=== PATIENT | male | born 1935 | race Hispanic/Latino ===

== ENCOUNTER 2018-11-26 11:21 | Emergency (ER) | payer MEDICARE ==
[2018-11-26] MEDS ORDERED: ACETAMINOPHEN EXTRA STRENGTH 500 MG TABLET ONE (11:45)
== END 2018-11-26 12:30 | disposition home or self-care (01) ==
LOC: EDH 11:21
DX: S46.912A Strain of unspecified muscle, fascia and tendon at shoulder and upper arm level, left arm, initial encounter (principal); N18.6 End stage renal disease; Z87.891 Personal history of nicotine dependence; Z99.2 Dependence on renal dialysis; W18.39XA Other fall on same level, initial encounter; Y93.01 Activity, walking, marching and hiking; Y92.89 Other specified places as the place of occurrence of the external cause; Y99.8 Other external cause status
CPT/HCPCS: 73030

== ENCOUNTER 2018-12-03 13:21 | Emergency (ER) | payer MEDICARE ==
[2018-12-03] MEDS ORDERED: IBUPROFEN 400 MG TABLET ONE (14:21)
== END 2018-12-03 14:51 | disposition home or self-care (01) ==
LOC: EDH 13:21
DX: S93.401A Sprain of unspecified ligament of right ankle, initial encounter (principal); S93.601A Unspecified sprain of right foot, initial encounter; N18.6 End stage renal disease; Z99.2 Dependence on renal dialysis; X58.XXXA Exposure to other specified factors, initial encounter; Y93.89 Activity, other specified; Y92.89 Other specified places as the place of occurrence of the external cause; Y99.8 Other external cause status
CPT/HCPCS: 73610; 73620

== ENCOUNTER 2023-02-14 06:37 | Day surgery (SDC) | payer OTHER, MEDICARE ==
[2023-02-10 11:15] LABS: BASOPHILS # (AUTO) 0.06 K/uL (0.00-0.20); BASOPHILS % (AUTO) 0.8 % (0.0-5.0); EOSINOPHILS # (AUTO) 0.22 K/uL (0.00-0.70); EOSINOPHILS % (AUTO) 3.1 % (0.0-8.0); HEMATOCRIT 41.7 % (42-54); IMMATURE GRANULOCYTE ABSOLUTE 0.03 K/uL (0-1); LYMPHOCYTES # (AUTO) 1.3 K/uL (1.0-4.8); MEAN CORPUSCULAR HEMOGLOBIN 29.3 pg (27.0-33.0); MEAN CORPUSCULAR HGB CONC 34.1 g/dL (32.0-36.0); MONOCYTES # (AUTO) 0.6 K/uL (0.1-1.0); MONOCYTES % (AUTO) 8.1 % (3.0-13.0); NEUTROPHILS % (AUTO) 69.6 % (40.0-77.0); PLATELET COUNT (AUTO) 109 K/uL (130-400); RED BLOOD CELL COUNT(AUTO) 4.85 MIL/uL (4.50-6.20); RED CELL DISTRIBUTION WIDTH 13.4 % (11.0-15.5); WHITE BLOOD COUNT (AUTO) 7.2 K/uL (4.8-10.8)
[2023-02-10 11:30] LABS: ALBUMIN 3.7 g/dL (3.5-5.0); BILIRUBIN,TOTAL 0.7 mg/dL (0.2-1.0); CREATININE 3.7 mg/dL (0.5-1.5); POTASSIUM 4.1 mmol/L (3.5-5.1); TOTAL PROTEIN, SERUM 7.1 g/dL (6.0-8.3)
[2023-02-10 11:43] VITALS: BP 114/71; PULSE 58; RESP 18
[2023-02-10 12:07] LABS: INR 0.93 (0.85-1.15); PROTHROMBIN TIME 10.2 SEC (9.6-11.6)
[2023-02-10 12:09] LABS: PARTIAL THROMBOPLASTIN TIME 24.8 SEC (26.3-35.5)
[~2023-02-14] VITALS: Ht 157.5 cm; Wt 71.6 kg
[2023-02-14] VITALS (18 sets, daily range): BP systolic 127–171; BP diastolic 52–79; PULSE 49–74; RESP 13–19
[~2023-02-14 06:37] MED LIST: 0.9%NACL 1000ML 1,000 ML IV SCH; CALC-1125 PO; CEFAZOLIN SODIUM 1 GM VIAL IVPB PRN; FOLI0.8T22 PO; LEVO50TA11 PO; SEVE800 PO
[2023-02-14] MEDS ORDERED: 0.9% NACL 500ML IV.SOLN 500 ML IV ONE (06:56)
[2023-02-14] MEDS ORDERED: BUPIVACAINE/PF 0.5% 30ML VIAL ONE (07:07)
[2023-02-14 07:15] LABS: CREATININE 4.3 mg/dL (0.5-1.5); POTASSIUM 3.9 mmol/L (3.5-5.1)
[2023-02-14] MEDS ORDERED: PROPOFOL 10 MG/ML 20ML VIAL IV ONE (07:53)
[2023-02-14] MEDS ORDERED: MIDAZOLAM HCL 1 MG/ML 2ML VIAL ONE (07:53)
[2023-02-14] MEDS ORDERED: LIDOCAINE PF 100MG/5ML (2%) SYRINGE 5ML ONE (07:53)
[2023-02-14] MEDS ORDERED: ROCURONIUM 10MG/1ML SYR 10 MG/ML ML ONE (07:53)
[2023-02-14] MEDS ORDERED: FENTANYL CITRATE PF 50 MCG/1 ML 2ML VIAL ONE (07:54)
[2023-02-14] MEDS ORDERED: ONDANSETRON 4MG INJ ONE (07:55)
[2023-02-14] MEDS ORDERED: EPHEDRINE SULFATE 50 MG/ML AMPULE ONE (08:28)
[2023-02-14] MEDS ORDERED: FAMOTIDINE 20MG VIAL IV ONE (08:35)
[2023-02-14] MEDS ORDERED: GLYCOPYRROLATE 1 MG/5 ML SYRINGE ONE (09:52)
[2023-02-14] MEDS ORDERED: NEOSTIGMINE 5MG/5ML SYR IV ONE (09:53)
== END 2023-02-14 11:45 | disposition home or self-care (01) ==
LOC: DAH 06:37
PROVIDERS: ATTEND Student in an Organized Health Care Education/Training Program
DX: N18.6 End stage renal disease (principal); Z20.822 Contact with and (suspected) exposure to COVID-19; K40.90 Unilateral inguinal hernia, without obstruction or gangrene, not specified as recurrent; D17.6 Benign lipomatous neoplasm of spermatic cord; K66.0 Peritoneal adhesions (postprocedural) (postinfection); Z99.2 Dependence on renal dialysis
CPT/HCPCS: 80053; 85025; 85610; 85730; 87426; 36415 ×2; 49324; 93005; 49505; 80048; A6260; C1750; A4663; C1781; A4649; J7040; J3490 ×4; J3010; J0690; J2710; J2001; J2250; J2704; J2405; A6204; C1769 ×2; A4215; A4223; A4222; A4221; A4600; G0168

== ENCOUNTER 2023-02-15 18:09 | Emergency (ER) | payer OTHER, MEDICARE ==
[~2023-02-15] VITALS: Ht 157.5 cm; Wt 72.6 kg
[~2023-02-15 18:09] MED LIST changes: -0.9%NACL 1000ML 1,000 ML IV SCH; -CEFAZOLIN SODIUM 1 GM VIAL IVPB PRN
[2023-02-15] MEDS ORDERED: ONDANSETRON 4MG INJ ONE (21:46)
[2023-02-15 21:55] LABS: BASOPHILS % (AUTO) 0.2 % (0.0-5.0); EOSINOPHILS % (AUTO) 0.1 % (0.0-8.0); HEMATOCRIT 43.6 % (42-54); LYMPHOCYTES % (AUTO) 3.9 % (21.0-51.0); MEAN CORPUSCULAR HGB CONC 34.4 g/dL (32.0-36.0); MEAN CORPUSCULAR VOLUME 84.3 fL (79-99); MONOCYTES % (AUTO) 7.5 % (3.0-13.0); NEUTROPHILS % (AUTO) 87.8 % (40.0-77.0); PLATELET COUNT (AUTO) 148 K/uL (130-400); RED BLOOD CELL COUNT(AUTO) 5.17 MIL/uL (4.50-6.20); RED CELL DISTRIBUTION WIDTH 13.5 % (11.0-15.5); WHITE BLOOD COUNT (AUTO) 9.8 K/uL (4.8-10.8)
[2023-02-15 22:13] LABS: CREATININE 3.6 mg/dL (0.5-1.5); POTASSIUM 4.4 mmol/L (3.5-5.1)
[2023-02-15 22:18] LABS: ALBUMIN 4.3 g/dL (3.5-5.0); TOTAL PROTEIN, SERUM 8.1 g/dL (6.0-8.3)
[2023-02-15] MEDS ORDERED: ONDANSETRON 4MG INJ IVP ONE (22:30)
[2023-02-16] MEDS ORDERED: ONDA4TAB10 PO (01:32)
[2023-02-16 01:37] VITALS: BP 122/65
== END 2023-02-16 01:48 | disposition home or self-care (01) ==
LOC: EDH 18:09
DX: I12.0 Hypertensive chronic kidney disease with stage 5 chronic kidney disease or end stage renal disease (principal); N18.6 End stage renal disease; R11.2 Nausea with vomiting, unspecified; E03.9 Hypothyroidism, unspecified; Z99.2 Dependence on renal dialysis
CPT/HCPCS: 99284; 96374; 84484; 80053; 85025; 36415; 93005; J2405

== ENCOUNTER 2024-12-14 19:22 | Emergency (ER) | payer OTHER, MEDICARE ==
[~2024-12-14] VITALS: Ht 160 cm; Wt 73.0 kg
[~2024-12-14 19:22] MED LIST changes: +ONDA-243 PO
--- NOTE | 2024-12-14 19:30 | NUR ---
Rubina becerra in [facility] - 12/14/24 at 1930 by ABHINAV NO ANSWER FOR REPORT RM [id number]
--- NOTE | 2024-12-14 19:34 | ERN ---
ED Note History of Present Illness Stated Complaint: LEFT SHOULDER PAIN DUE TO FALL Chief Complaint: Mechanical Fall Time Seen by MD: 19:25 Dictation: PATIENT IS AN 89-YEAR-OLD MALE HERE WITH HIS DAUGHTER WITH COMPLAINTS OF A SAME LEVEL TRIP FALL 30 MINUTES PRIOR TO ARRIVAL. HE LANDED ON HIS LEFT SHOULDER AND PROXIMAL HUMERUS. WITH DECREASED RANGE OF MOTION. NO BLOOD THINNERS NO HEAD INJURY NO TRAUMA ALERT CRITERIA. PATIENT HAS TAKEN NOTHING PRIOR TO ARRIVAL FOR PAIN. Allergies: Coded Allergies: No Known Drug Allergies (Unverified Allergy, Unknown, 02/14/22) Home Meds Active Scripts Ondansetron (Ondansetron Odt) 4 Mg Tab.rapdis, 4 MG PO Q6H for 3 Days, #12 TAB Prov:ANNA ZURITA MD 02/16/23 Reported Medications Calcium Carbonate (Calcium) 600 Mg Tablet, 600 MG PO DAILY, TAB 02/15/22 Folic Acid/Vitamin B Comp W-C (Radha-Caity Tablet) 0.8 Mg Tablet, 1 TAB PO DAILY 02/15/22 Levothyroxine Sodium (Levothyroxine Sodium) 50 Mcg Tablet, 1 TAB PO 0630 02/15/22 Sevelamer HCl (Renagel) 800 Mg Tablet, 3 TAB PO TIDMEALS 02/15/22 Past Medical History Past Medical History: Renal Failure Additional Past Medical Hx: THYROID PROBLEMS Surgical History: None Family History: CAD, HTN Social History: Negative RN Note Reviewed/Agreed w/PFSH: Yes Review of System Dictation CONSTITUTIONAL: NEGATIVE EXCEPT FOR HPI HEAD/FACE: NEGATIVE EXCEPT FOR HPI EENT: NEGATIVE EXCEPT FOR HPI RESPIRATORY: NEGATIVE EXCEPT FOR HPI GASTROINTESTINAL/ABDOMINAL: NEGATIVE EXCEPT FOR HPI GENITOURINARY: NEGATIVE EXCEPT FOR HPI MUSCULOSKELETAL: NEGATIVE EXCEPT FOR HPI LEFT SHOULDER AND HUMERUS PAIN WITH DECREASED RANGE OF MOTION INTEGUMENTARY: NEGATIVE EXCEPT FOR HPI NEUROLOGICAL/PSYCH: NEGATIVE EXCEPT FOR HPI HEMATOLOGIC/LYMPHATIC: NEGATIVE EXCEPT FOR HPI ALL SYSTEMS NEGATIVE, EXCEPT NOTED ABOVE. 13 POINT REVIEW OF SYSTEMS ASSESSED AND ALL NEGATIVE EXCEPT FOR ABOVE. Initial Vital Sign VS Vital Signs Date Time Temp Pulse Resp B/P (MAP) Pulse Ox O2 Delivery O2 Flow Rate FiO2 12/14/24 19:26 97.9 56 19 156/82 99 Room Air 0 12/14/24 19:37 21 Physical Exam Dictation VITAL SIGNS REVIEWED GENERAL APPEARANCE: ALERT, ORIENTED X 3, SEVERE ACUTE DISTRESS, WELL DEVELOPED, NOURISHED. HEAD AND FACE: NON-TRAUMATIC. EYES: PERRL, PINK CONJUNCTIVAS, EYELID NO TRAUMA, ANTERIOR CHAMBER WITH ARCUS SENILIS. EARS: PINNAS INTACT AND NO SIGNS OF TRAUMA OR ERYTHEMA EAR CANALS CLEAR AND NO DISCHARGE TM NO ERYTHEMA NOSE: NO DISCHARGE, NO BLEEDING. OROPHARYNX: MOUTH NORMAL, TONGUE PINK, PHARYNX CLEAR,NO ERYTHEMA, TONSILS NO EXUDATES, NO ABSCESSES NOTED, MUCOUS MEMBRANE MOIST NECK: SUPPLE, NON-TENDER, NO THYROMEGALY, NO MASSES, NO JVD, NO BRUITS BREAST:DEFERRED CHEST:NO TENDERNESS, NO CREPITUS, NO PARADOXICAL MOVEMENT, NO RETRACTIONS LUNGS:CLEAR, WELL-VENTILATED, SYMMETRIC, NO RALES, NO WHEEZING, NO RHONCHI, NO STRIDOR, GOOD BREATH SOUNDS BILATERALLY HEART: REGULAR RATE, REGULAR RHYTHM, NO MURMUR, NO GALLOPS VASCULAR: NO PERIPHERAL EDEMA, ABDOMEN: SOFT, POSITIVE BOWEL SOUNDS, NONDISTENDED, NO GUARDING, NONTENDER, NO REBOUND, NO MASSES NO HEPATOMEGALY, NO SPLENOMEGALY, NO RAMOS'S SIGN, NO HERNIAS. RECTAL: DEFERRED GENITAL: DEFERRED NEUROLOGICAL: NORMAL SPEECH, MOTOR FUNCTION INTACT, SENSORY FUNCTION INTACT MUSCULOSKELETAL: NECK NONTENDER, FULL RANGE OF MOTION, BACK NONTENDER, FULL RANGE OF MOTION, EXTREMITIES: DIFFUSE LEFT SHOULDER AND MEDIAL HUMERUS PAIN TENDERNESS. DECREASED RANGE OF MOTION. DISTAL NEUROVASCULAR CMS GROSSLY INTACT SKIN: COLOR PINK, DRY, NO TURGOR, NO RASH, NO LACERATIONS, NO ABRASIONS, NO CONTUSIONS. LYMPHATIC: DEFERRED Results (Laboratory/Radiology) Laboratory/Radiology LEFT HUMERUS X-RAY NEGATIVE, LEFT ANTERIOR DISLOCATION ON X-RAY.2154/ REPEAT SHOULDER X-RAY DEMONSTRATES ADEQUATE REDUCTION Labs Reviewed?: Yes ED Course ED Course Orders Procedure Category Date Status Time Shoulder Comp 2+Vws Lt RAD 12/14/24 Resulted 19:30 Humerus 2+Vws Lt RAD 12/14/24 Resulted 19:30 Acetaminophen With PHA 12/14/24 Complete Codeine (Tylenol-Code 19:30 Saline Lock Iv CPOE 12/14/24 Transmitted 20:40 Ketorolac PHA 12/14/24 Complete Tromethamine 30mg/Ml 21:00 Diazepam 5 Mg/Ml 2 Ml PHA 12/14/24 Complete Syg (Valium 5 Mg/M 21:00 Shoulder Comp 2+Vws Lt RAD 12/14/24 Logged 21:46 Shoulder Ltd 1vw Lt RAD 12/14/24 Logged 21:47 Shoulder Immobilizer SHANTI 12/14/24 In Process 21:47 Current Medications Medications (Trade) Dose Ordered Sig/Maddison Route PRN Reason Start Time Stop Time Status Last Admin Dose Admin Acetaminophen/ Codeine Phosphate (TYLenol-coDEINE TAB) 2 tab ONCE ONCE PO 12/14/24 19:30 12/14/24 19:32 DC 12/14/24 19:59 Diazepam (VALium 5 MG/ML 2 ML SYG) 5 mg ONCE ONCE IVP 12/14/24 21:00 12/14/24 21:01 DC 12/14/24 21:14 Ketorolac Tromethamine (toRADol) 30 mg ONCE ONCE IVP 12/14/24 21:00 12/14/24 21:01 DC 12/14/24 21:14 Vital Signs Date Time Temp Pulse Resp B/P (MAP) Pulse Ox O2 Delivery O2 Flow Rate FiO2 12/14/24 21:35 63 16 177/93 97 Room Air* 0 12/14/24 19:37 97.9 56 19 156/82 99 Room Air* 0 21 12/14/24 19:26 97.9 56 19 156/82 99 Room Air 0 Medical Decision Making [facility] 2 MEDICAL DISCHARGE MAKING BASED ON X-RAYS OF LEFT SHOULDER AND HUMERUS PATIENT WI ANTERIOR SHOULDER DISLOCATION WITH REDUCTION IMMOBILIZER PLACED NEUROVASCULAR AND CMS INTACT POST PLACEMENT OF IMMOBILIZER PATIENT AND FAMILY AWARE TO FOLLOW UP WITH DR. ANDRIY GONZALEZ ON TUESDAY. Procedure Procedure Dictation: 2139/PROCEDURE EXPLAINED TO PATIENT HE AGREED TO PROCEED PATIENT GIVEN TORADOL 30 MG IV PATIENT GIVEN 5 MG IV PUSH LEFT ARM WAS IN A FLEXED POSITION AND ROTATED EXTERNALLY REDUCTION WAS FELT NO FURTHER ANTERIOR FULLNESS NOTED DISTAL NEUROVASCULAR CMS INTACT POST REDUCTION WE WILL FOLLOW UP WITH THE IMMOBILIZATION AND X-RAY TO CONFIRM REDUCTION DX & DISP Disposition: Discharge Departure Impression: Primary Impression: Anterior dislocation of left humerus Additional Impression: Fall Condition: Stable Scripts Acetaminophen with Codeine (Acetaminophen-Cod #3 Tablet) 300 Mg-30 Mg Tablet 1 TAB PO Q4H PRN for MODERATE TO SEVERE PAIN, #12 TAB 0 Refills Prov: ALEKSANDR DAMICO HVAC ENGINEER 12/14/24 Additional Instructions: Follow-up with primary care provider in 1 to 2 days. Take medications as directed here in the emergency room. Okay to continue home medications unless otherwise discussed during your visit in the emergency room today. Return to your nearest emergency room if symptoms worsen or if there is no improvement. Call 911 if you need immediate assistance. Take Tylenol or Motrin [id number] as needed and if no contraindications are present. Increase oral hydration. A wound culture or urine culture was ordered here in the emergency room department please follow-up with primary care provider and advise them to get repeat ports from our facility. If you had any Jose wrap/splints that were applied here, please do not remove them until you see your primary care or specialty. Shoulder immobilizer and no weight-bearing to left arm until cleared by orthopedic surgeon, call for an appointment on Tuesday. Take Tylenol as needed for mild pain. Cool compresses to shoulder three to 4 times a day. Referrals: LUIS CARLOS MOE MD (PCP) ANDRIY GONZALEZ DO Time of Disposition: 21:59 I have reviewed the case, and I agree with, Diagnosis and Plan ALEKSANDR DAMICO HVAC ENGINEER December 14, 2024 19:33
[2024-12-14 19:37] VITALS: TEMP 97.9
[2024-12-14] MEDS: acetaMINOPHEN WITH coDEINE 1 TAB TAB PO ONE (19:59)
--- NOTE | 2024-12-14 21:05 | HMCIMG ---
HUMERUS 2+VWS LT INDICATION: LEFT MEDIAL HUMERUS PAIN STATUS POST FALL DECREASED RANGE OF MOTION TECHNIQUE: HUMERUS 2+VWS LT. FINDINGS AND IMPRESSION: Anterior shoulder dislocation is seen. There is diffuse soft tissue swelling AV graft is seen in the arm. There is diffuse osteopenia limiting evaluation of the study.
--- NOTE | 2024-12-14 21:08 | HMCIMG ---
SHOULDER COMP 2+VWS LT INDICATION: LEFT SHOULDER PAIN STATUS POST FALL TECHNIQUE: SHOULDER COMP 2+VWS LT. FINDINGS AND IMPRESSION: Anterior shoulder dislocation is seen. There is diffuse soft tissue swelling AV graft seen in the arm. No definite displaced fracture is identified. There is diffuse osteopenia limiting evaluation of the study.
[2024-12-14] MEDS: ketOROlac 30MG VIAL (30MG/ML) IVP ONE (21:14)
[2024-12-14] MEDS: diazePAM 5 MG/ML 2 ML SYG IVP ONE (21:14)
--- NOTE | 2024-12-14 21:42 | NUR ---
LAST ORAL INTAKE AT 1735.
--- NOTE | 2024-12-14 21:44 | NUR ---
LEFT SHOULDER REDUCTION SUCCESSFUL WITH VALIUM 5MG AT THIS TIME. NO CONSCIOUS SEDATION NEEDED PER ER MD.
[2024-12-14] MEDS ORDERED: ACET-2079 PO (22:00)
[2024-12-14 22:35] VITALS: BP 117/69; PULSE 57; RESP 16; O2SAT 97
--- NOTE | 2024-12-15 09:39 | HMCIMG ---
Exam Type: SHOULDER COMP 2+VWS LT Clinical Information: POST-REDUCTION Comparison: None FINDINGS: There is adequate alignment of the glenohumeral joint after successful dislocation reduction. No other interval changes are seen. IMPRESSION: Adequate post reduction alignment.
== END 2024-12-14 23:00 | disposition home or self-care (01) ==
LOC: EDH 19:22
DX: S43.015A Anterior dislocation of left humerus, initial encounter (principal); Z79.899 Other long term (current) drug therapy; W18.39XA Other fall on same level, initial encounter; Y93.89 Activity, other specified; Y92.89 Other specified places as the place of occurrence of the external cause; Y99.8 Other external cause status
CPT/HCPCS: 99284; 23650; 96374; 96375; 73060; 73030 ×2; J1885; J3360